=== PATIENT | female | born 1955 | race Caucasian/White ===

== ENCOUNTER 2018-11-11 10:48 | Outpatient (CLI) | payer BC ==
[2018-11-11 12:05] LABS: D-DIMER 0.28 MG/L FEU (0-0.50)
== END 2018-11-11 23:59 | disposition home or self-care (01) ==
LOC: LAB 10:48
PROVIDERS: ATTEND Family Medicine
DX: R06.02 Shortness of breath (principal); R07.9 Chest pain, unspecified
CPT/HCPCS: 36415; 85379